=== PATIENT | male | born 2000 | race Caucasian/White ===

== ENCOUNTER 2021-04-07 21:25 | Emergency (ER) | payer OTHER, SELFPAY ==
--- NOTE | ~2021-04-07 | XR_ITS ---
EXAMINATION: XR CHEST CLINICAL INFORMATION: Chest pain. COMPARISON: None TECHNIQUE: 2 views of the chest were obtained. FINDINGS: No significant abnormality is noted involving the heart, lungs, mediastinum, bony thorax or soft tissues. XR/XR chest 2V IMPRESSION: Unremarkable examination.
[2021-04-07 22:08] VITALS: BP 118/53; PULSE 71; RESP 18; TEMP 36.7; O2SAT 98; BMI 31.0
--- NOTE | 2021-04-07 23:28 | ECG_ITS ---
Test Reason : CHEST PAIN Blood Pressure : / mmHG Vent. Rate : 065 BPM Atrial Rate : 065 BPM P-R Int : 122 ms QRS Dur : 090 ms QT Int : 376 ms P-R-T Axes : 035 059 028 degrees QTc Int : 391 ms Normal sinus rhythm Normal ECG No previous ECGs available Referred By: Yanci Loomis Electronically Signed By:ANAIS EM MD
--- NOTE | 2021-04-07 23:31 | ED.CHESTPAIN ---
HPI - Chest Pain General Chief Complaint: Chest Pain Stated Complaint: sob,cp, back pain Time Seen by Provider: 04/07/21 23:26 History of Present Illness HPI narrative: Patient is 20-year-old male presents today with having left-sided lower rib pain. The pain has been mild placement was playing soccer. Worse with certain position. Improved with other positions. Patient denies any leg swelling. No history of blood clots. No family history of blood clots. No history of cancer. No history of diabetes. No history of hypertension, high cholesterol. Positive history of smoking. Never had a heart attack. Pain is sharp. Related Data Previous Rx's Medication Instructions Recorded ibuprofen 400 mg tablet 400 mg PO Q6H PRN #20 tab 04/07/21 Allergies Allergy/AdvReac Type Severity Reaction Status Date / Time No Known Allergies Allergy Verified 04/07/21 22:06 [No Known Allergies*] Review of Systems Review of Systems: Positive chest pain is worse with position. Yes all other systems are reviewed and are negative [facility] Social History Social History Advance Directives: No Advance Directives Information Provided: No Physical Exam Vital Signs: Vital Signs: Last Vital Signs Temp 98.0 F 04/07/21 22:08 Pulse 71 04/07/21 22:08 Resp 18 04/07/21 22:08 BP 118/53 L 04/07/21 22:08 Pulse Ox 98 04/07/21 22:08 Body Mass Index 31.0 Appearance: Alert. Oriented X3. No acute distress. Eyes: Pupils equal, round and reactive to light. ENT: Pharynx normal. Neck: Normal inspection. Neck supple. No lymph nodes noted. No crepitus CVS: Normal heart rate and rhythm. Pulses normal. Normal S1 and S2 Respiratory: No respiratory distress. Breath sounds normal. No Wheezing. No rales. Chest pain reproducible with touch. Abdomen: Soft and nontender. No rigidity. No distention. good BS x4 Skin: Skin warm and dry. Normal skin color. Normal skin turgor. Extremities: No lower extremity edema. Neurovascular intact to all extremities. No Lacerations. No Rash Neuro: Oriented X 3. No motor deficit. No sensory deficit. Moving all extermities. No slurred speech MDM - Chest Pain MDM Narrative Medical decision making narrative: Well-appearing no distress. Patient's EKG showed a sinus pattern heart rate is 70 OK QRS QT within normal limits there is no acute ST segment elevation. Patient has no wrist for DVT. EKG is normal. One risk for CAD being that he is a smoker. He is 20 years old. Patient's unlikely to have ACS. Will discharge patient home. In stable condition. Discharge Plan Discharge Clinical Impression: Atypical chest pain Patient Disposition: Home, Self-Care Instructions: Chest Wall Pain (ED) Prescriptions: New ibuprofen 400 mg tablet 400 mg PO Q6H PRN (Reason: pain) Qty: 20 RF: 0 Referrals: Liliya Guerra MD [Primary Care Provider] - 2 days
[2021-04-08] MEDS: Ibuprofen 400 MG TABLET PO (00:18)
== END 2021-04-08 00:23 | disposition home or self-care (01) ==
PROVIDERS: Emergency Provider Emergency Medicine Emergency Medical Services; PCP Pediatrics
DX: R07.9 Chest pain, unspecified (principal); R06.02 Shortness of breath; R07.81 Pleurodynia
CPT/HCPCS: 71046; 93005; 99283

== ENCOUNTER → 2023-02-03 09:57 | Outpatient (BNVA) | payer SELFPAY | PROVIDERS: PCP Pediatrics | DX: Z13.89 Encounter for screening for other disorder (principal) ==

== ENCOUNTER → 2023-02-04 11:45 | Outpatient (BNVA) | payer SELFPAY | PROVIDERS: PCP Pediatrics | DX: Z11.1 Encounter for screening for respiratory tuberculosis (principal) ==